=== PATIENT | female | born 1995 | race American Indian/Alaskan Native ===

== ENCOUNTER 2017-04-04 12:19 | Inpatient (IN) | payer OTHER ==
[~2017-04-04] VITALS: Ht 170.2 cm; Wt 76.7 kg
[2017-04-23] MEDS ORDERED: PRENATAL TABLE1 EAC1 PO (08:06)
== END 2017-04-25 11:23 | DRG 775 ==
LOC: OB/GYN 04-23 06:23 → LDR 04-23 06:23 → OB/GYN 04-23 17:08 → LDR 05-01 12:30
PROC: 10E0XZZ Delivery of Products of Conception, External Approach (ICD-10-PCS; principal; 2017-04-23)
PROC: 0W8NXZZ Division of Female Perineum, External Approach (ICD-10-PCS; 2017-04-23)
PROC: 4A1HXCZ Monitoring of Products of Conception, Cardiac Rate, External Approach (ICD-10-PCS; 2017-04-23)
PROC: 4A033R1 Measurement of Arterial Saturation, Peripheral, Percutaneous Approach (ICD-10-PCS; 2017-04-23)
PROC: 10907ZC Drainage of Amniotic Fluid, Therapeutic from Products of Conception, Via Natural or Artificial Opening (ICD-10-PCS; 2017-04-23)
DX: O80 Encounter for full-term uncomplicated delivery (principal); Z37.0 Single live birth; Z3A.38 38 weeks gestation of pregnancy

== ENCOUNTER 2024-06-14 12:04 | Emergency (ER) | payer OTHER ==
[~2024-06-14] VITALS: Ht 167.6 cm; Wt 77.1 kg
[~2024-06-14 12:04] MED LIST: PRENATAL TABLE1 EAC1 PO
[2024-06-14 13:42] LABS: HEMATOCRIT 37.2 % (36.0-45.00); HEMOGLOBIN 12.8 g/dL (12.0-15.00); MEAN CELL VOLUME 85.9 fL (80.00-100.00); MEAN CORPUSCULAR HEMOGLOBIN 29.5 pg (27.00-32.0); MEAN CORPUSCULAR HGB CONC 34.3 g/dl (32.0-36.0); PLATELET COUNT 245 K/uL (150-450); RED BLOOD COUNT 4.33 M/uL (4.00-6.00); RED CELL DISTRIBUTION WIDTH 14.4 % (11.5-14.5)
[2024-06-14 13:58] LABS: PH,URINE 5.5 (5.0-8.0); URINE APPEARANCE Clear; URINE BILIRRUBIN Negative (NEGATIVE); URINE BLOOD Trace; URINE COLOR Yellow; URINE GLUCOSE Negative (NEGATIVE); URINE KETONE Negative (NEGATIVE); URINE LEUKOCYTE Trace; URINE NITRATE Negative; URINE PROTEIN Negative (NEGATIVE)
[2024-06-14 14:01] LABS: URINE BACTERIA 1073.4 uL (0.0-1933); URINE EPITHELIAL CELLS 54.7 uL (0.0-38.8); URINE RBC 8.9 uL (0.0-20.8)
[2024-06-14 14:13] LABS: URINE CAST 0.44 uL (0.0-1.40)
== END 2024-06-14 16:57 | disposition home or self-care (01) ==
LOC: ER 12:04
PROVIDERS: General Practice
DX: O20.9 Hemorrhage in early pregnancy, unspecified (principal); Z3A.11 11 weeks gestation of pregnancy; Z88.0 Allergy status to penicillin

== ENCOUNTER 2024-12-15 14:32 | Outpatient (CLI) | payer OTHER | END 2024-12-15 15:55 | disposition home or self-care (01) | LOC: NST 14:32 | PROVIDERS: ATTEND Obstetrics & Gynecology Maternal & Fetal Medicine | DX: Z34.83 Encounter for supervision of other normal pregnancy, third trimester (principal) ==

== ENCOUNTER → 2024-12-23 | Outpatient (CLI) | payer OTHER | END | disposition home or self-care (01) | LOC: NST 10:01 | PROVIDERS: ATTEND Obstetrics & Gynecology | DX: Z34.83 Encounter for supervision of other normal pregnancy, third trimester (principal) ==

== ENCOUNTER 2024-12-28 12:38 | Outpatient (CLI) | payer OTHER | END 2024-12-28 13:21 | disposition home or self-care (01) | LOC: NST 12:38 | PROVIDERS: ATTEND Obstetrics & Gynecology | DX: Z34.83 Encounter for supervision of other normal pregnancy, third trimester (principal) ==

== ENCOUNTER 2024-12-29 05:22 | Inpatient (IN) | payer OTHER ==
[2024-12-29] VITALS (10 sets, daily range): BP systolic 105–128; BP diastolic 67–81
[~2024-12-29] VITALS: Ht 167.6 cm; Wt 91.6 kg
[2024-12-29] MEDS ORDERED: RINGERS SOLUTION,LACTATED 1,000 ML IV SCH (06:45)
[2024-12-29 06:48] LABS: BASO % 0.3 % (0.1-1.2); EOS # 0.09 (0.04-0.54); EOS % 1.0 % (0.7-7.0); LYMPH # 1.97 (1.18-3.74); LYMPH % 22.1 % (19.3-53.1); MEAN PLATELET VOLUME 10.90 fl (9.4-12.4); MONO # 0.66 (0.24-0.82); MONO % 7.4 % (4.7-12.5); NEUT # 6.14 (1.56-6.13); NEUT % 68.8 % (34.0-71.1); RED CELL DISTRIBUTION WIDTH 16.3 % (11.6-14.4)
[2024-12-29 07:25] LABS: INR < 0.93
[2024-12-29 07:34] LABS: ALT/SGPT 13.0 U/L (12-78); AST/SGOT 15.0 U/L (15-37); BILIRUBIN TOTAL 0.82 mg/dL (0.3-1.2); BUN CREA RATIO 17.0 (7.0-25.0); CREATININE SERUM 0.53 mg/dL (0.55-1.02); GFR 134.55; GLOBULINA 3.5 G/DL (2.4-3.5); GLUCOSE FASTING 80.0 mg/dL (65-100); OSMOLALITY SERUM 277.0 MOSM/KG (275-295)
[2024-12-29] MEDS ORDERED: OXYTOCIN 500 ML IV ONE (07:45)
[2024-12-29] MEDS ORDERED: ERYTHROMYCIN BASE OPHT 1GM EACH TUBE OP ONE (10:23)
[2024-12-29] MEDS ORDERED: LIDOCAINE HCL 1% 10ML VIAL ONE (10:23)
[2024-12-29] MEDS ORDERED: OXYTOCIN 20 UNITS/1000ML RL PIGGYBAG IV ONE (10:23)
[2024-12-29] MEDS ORDERED: CHLORHEXIDINE GLUCONATE 120 ML BOTTLE TOP ONE (10:23)
[2024-12-29] MEDS ORDERED: MORPHINE SULFATE 4 MG/ML CARTRIDGE IV ONE (10:45)
[2024-12-29] MEDS ORDERED: CHLORHEXIDINE GLUCONATE 120 ML BOTTLE TP SCH (12:45)
[2024-12-29] MEDS ORDERED: OXYTOCIN 1,000 ML IV SCH (12:45)
[2024-12-30 01:34] VITALS: BP 107/71
[2024-12-30 06:47] LABS: BASO % 0.3 % (0.1-1.2); EOS # 0.10 (0.04-0.54); EOS % 0.8 % (0.7-7.0); LYMPH # 2.32 (1.18-3.74); LYMPH % 18.5 % (19.3-53.1); MEAN PLATELET VOLUME 11.90 fl (9.4-12.4); MONO # 0.77 (0.24-0.82); MONO % 6.1 % (4.7-12.5); NEUT # 9.22 (1.56-6.13); NEUT % 73.6 % (34.0-71.1); RED CELL DISTRIBUTION WIDTH 16.3 % (11.6-14.4)
[2024-12-30 08:18] VITALS: BP 112/70
[2024-12-30] MEDS ORDERED: IRON FUM,PS/FOLIC/BCOMP,C NO.9 1 CAP CAPSULE PO SCH (09:00)
[2024-12-30 16:25] VITALS: BP 110/70
[2024-12-30 21:00] VITALS: BP 108/70
[2024-12-31 01:22] VITALS: BP 123/74
[2024-12-31 08:23] VITALS: BP 122/70
== END 2024-12-31 12:48 | disposition home or self-care (01) | DRG 807 ==
LOC: LDR → OB/GYN 14:00 → LDR 01-08 12:36
PROVIDERS: Obstetrics & Gynecology; Obstetrics & Gynecology Maternal & Fetal Medicine; ADMIT Obstetrics & Gynecology; ATTEND Obstetrics & Gynecology
PROC: 10E0XZZ Delivery of Products of Conception, External Approach (ICD-10-PCS; principal; 2024-12-29)
PROC: 0KQM0ZZ Repair Perineum Muscle, Open Approach (ICD-10-PCS; 2024-12-29)
PROC: 4A1HXCZ Monitoring of Products of Conception, Cardiac Rate, External Approach (ICD-10-PCS; 2024-12-29)
DX: O70.1 Second degree perineal laceration during delivery (principal); O69.81X0 Labor and delivery complicated by cord around neck, without compression, not applicable or unspecified; Z37.0 Single live birth; Z3A.39 39 weeks gestation of pregnancy